=== PATIENT | female | born 1995 | race American Indian/Alaskan Native ===

== ENCOUNTER 2016-08-20 00:22 | Emergency (ER) | payer SELFPAY ==
[2016-08-20 00:33] VITALS: BP 139/92
== END 2016-08-20 00:30 | disposition left against medical advice (07) ==
LOC: ED 00:22
DX: J02.9 Acute pharyngitis, unspecified (principal); R05 Cough; Z53.21 Procedure and treatment not carried out due to patient leaving prior to being seen by health care provider

== ENCOUNTER 2017-03-22 22:42 | Emergency (ER) | payer SELFPAY ==
[2017-03-23 00:57] VITALS: BP 111/53
--- NOTE | 2017-03-23 05:42 | Emergency Department Report ---
ED ENT HPI - General Chief complaint: Sore Throat Stated complaint: SORE THROAT Time Seen by Provider: 03/23/17 05:28 Source: patient Mode of arrival: Ambulatory Limitations: No Limitations - History of Present Illness Initial comments: A 21-year-old female presents to ER with complaints of sore throat and cough productive of scant sputum 1 week. Patient denies nausea vomiting or diarrhea , no fever. No known sick contacts. No rashes. Patient has nasal congestion with rhinorrhea MD complaint: sore throat -: Gradual, week(s) (1) Location: throat (sore throat) Severity: moderate Severity scale (0 -10): 5 Quality: aching Consistency: constant Improves with: none Worsens with: swallowing, eating Associated Symptoms: cough, pain with swallowing, sore throat, rhinorrhea. denies: fever, gum swelling, toothache, tinnitus, hearing loss, discharge from ear - Related Data Previous Rx's Medication Instructions Recorded Last Taken Type Amoxicillin/K Clav Tab [Augmentin 1 tab PO Q12HR #20 tab 03/23/17 Unknown Rx 875 mg] Ibuprofen [Motrin 400 MG tab] 400 mg PO Q6HR PRN #30 tablet 03/23/17 Unknown Rx guaiFENesin [Robitussin] 200 mg PO Q8HR #300 ml 03/23/17 Unknown Rx Allergies Allergy/AdvReac Type Severity Reaction Status Date / Time No Known Allergies Allergy Verified 08/20/16 00:29 ED Dental HPI - General Chief complaint: Sore Throat Stated complaint: SORE THROAT Time Seen by Provider: 03/23/17 05:28 Source: patient Mode of arrival: Ambulatory Limitations: No Limitations - Related Data Previous Rx's Medication Instructions Recorded Last Taken Type Amoxicillin/K Clav Tab [Augmentin 1 tab PO Q12HR #20 tab 03/23/17 Unknown Rx 875 mg] Ibuprofen [Motrin 400 MG tab] 400 mg PO Q6HR PRN #30 tablet 03/23/17 Unknown Rx guaiFENesin [Robitussin] 200 mg PO Q8HR #300 ml 03/23/17 Unknown Rx Allergies Allergy/AdvReac Type Severity Reaction Status Date / Time No Known Allergies Allergy Verified 08/20/16 00:29 ED Review of Systems ROS: Stated complaint: SORE THROAT Other details as noted in HPI Comment: All other systems reviewed and negative Constitutional: no symptoms reported, malaise, weakness. denies: chills, diaphoresis, fever Eyes: denies: eye pain, eye discharge, vision change ENT: throat pain. denies: dental pain, hearing loss, epistaxis Respiratory: cough (productive of scant yellowish sputum), shortness of breath. denies: SOB with exertion, SOB at rest Cardiovascular: denies: chest pain, palpitations, dyspnea on exertion, orthopnea , edema, syncope, paroxysmal nocturnal dyspnea Endocrine: no symptoms reported Gastrointestinal: denies: nausea, vomiting, diarrhea, constipation, hematemesis , melena Genitourinary: denies: urgency, dysuria, frequency, hematuria, discharge Skin: denies: lesions, change in color, change in hair/nails, pruritus Neurological: denies: headache, weakness, numbness, paresthesias ED Past Medical Hx - Past Medical History Previous Medical History?: No - Surgical History Past Surgical History?: No - Social History Smoking Status: Never Smoker - Medications Home Medications: Home Medications Medication Instructions Recorded Confirmed Last Taken Type Amoxicillin/K Clav Tab [Augmentin 1 tab PO Q12HR #20 tab 03/23/17 Unknown Rx 875 mg] Ibuprofen [Motrin 400 MG tab] 400 mg PO Q6HR PRN #30 tablet 03/23/17 Unknown Rx guaiFENesin [Robitussin] 200 mg PO Q8HR #300 ml 03/23/17 Unknown Rx ED Physical Exam - General Limitations: No Limitations General appearance: alert, in no apparent distress - Head Head exam: Present: atraumatic, normocephalic, normal inspection - Eye Eye exam: Present: normal appearance, PERRL, EOMI. Absent: scleral icterus, conjunctival injection, nystagmus - ENT ENT exam: Present: normal exam, mucous membranes moist, TM's normal bilaterally , normal external ear exam, other (erythemic pharynx) - Neck Neck exam: Present: normal inspection, full ROM, lymphadenopathy. Absent: tenderness, meningismus - Respiratory Respiratory exam: Present: normal lung sounds bilaterally. Absent: respiratory distress, wheezes, rales, rhonchi, stridor, chest wall tenderness, accessory muscle use, decreased breath sounds - Cardiovascular Cardiovascular Exam: Present: regular rate, normal rhythm, normal heart sounds. Absent: bradycardia, tachycardia, systolic murmur, diastolic murmur - GI/Abdominal GI/Abdominal exam: Present: soft, normal bowel sounds. Absent: distended, tenderness, guarding, rebound, hyperactive bowel sounds, hypoactive bowel sounds , organomegaly, mass - Back Exam Back exam: Present: normal inspection, full ROM. Absent: tenderness, CVA tenderness (L), muscle spasm - Neurological Exam Neurological exam: Present: alert, oriented X3, CN II-XII intact, motor sensory deficit ED Course Vital Signs 03/23/17 03/23/17 00:56 01:04 Temperature 98.1 F 98.1 F Pulse Rate 65 65 Respiratory 16 16 Rate Blood Pressure 111/53 Blood Pressure 111/53 [Right] O2 Sat by Pulse 100 100 Oximetry Critical Care Time: No Critical care attestation.: If time is entered above; I have spent that time in minutes in the direct care of this critically ill patient, excluding procedure time. ED Disposition Clinical Impression: Upper respiratory tract infection, Acute pharyngitis Disposition: TO HOME OR SELFCARE Is pt being admited?: No Does the pt Need Aspirin: No Condition: Stable Instructions: Pharyngitis (ED), Upper Respiratory Infection (ED) Additional Instructions: Gargle with warm saltwater as needed. Follow up with her primary care physician in 2-3 days. Return back to the ER if your problem gets worse Prescriptions: Amoxicillin/K Clav Tab [Augmentin 875 mg] 1 tab PO Q12HR #20 tab guaiFENesin [Robitussin] 200 mg PO Q8HR #300 ml Ibuprofen [Motrin 400 MG tab] 400 mg PO Q6HR PRN #30 tablet PRN Reason: Pain Referrals: PRIMARY CARE, [Primary Care Provider] - 3-5 Days Time of Disposition: 05:51
== END 2017-03-23 06:00 | disposition home or self-care (01) ==
LOC: ED 22:42
DX: J06.9 Acute upper respiratory infection, unspecified (principal); J02.9 Acute pharyngitis, unspecified
CPT/HCPCS: 87116; 87430; 99282

== ENCOUNTER 2019-05-25 09:11 | Emergency (ER) | payer MEDICAID ==
[2019-05-25] MEDS ORDERED: IBUPROFEN 800 MG TAB PO ONE (11:09)
--- NOTE | 2019-05-25 11:10 | Emergency Department Report ---
Minor Respiratory - HPI Duration: 5 Days Pain Location: Chest Severity: mild Minor Respiratory: Yes Able to Tolerate Fluids, Yes Fever, No Rhinorrhea, No Sore Throat, No Ear Pain, No Cough, No Sick Contacts, No Hemoptysis, No Chest Pain, No Shortness of Breath Other History: 23 yo comes to ER with 5 day hx of fever, body aches, and cough. She states she feels weak. Denies pMH. No abd pain, no dysuria, no vag dc, no ba ck pain. No n/v/d. Provider took temp 102.6 orally. HR 100 and sat on room air 100%. <KEV MILTON - Last Filed: 05/25/19 17:46> <HALEY KEYES - Last Filed: 05/26/19 00:53> - HPI Chief Complaint: Upper Respiratory Infection Stated Complaint: FLU LIKE SYM Time Seen by Provider: 05/25/19 11:08 ED Review of Systems ROS: Stated complaint: FLU LIKE SYM Other details as noted in HPI Comment: All other systems reviewed and negative <KEV MILTON - Last Filed: 05/25/19 17:46> ROS: Stated complaint: FLU LIKE SYM Other details as noted in HPI <HALEY KEYES - Last Filed: 05/26/19 00:53> ED Past Medical Hx - Past Medical History Previous Medical History?: No - Surgical History Past Surgical History?: No - Family History Family history: no significant - Social History Smoking Status: Never Smoker Substance Use Type: None <KEV MILTON - Last Filed: 05/25/19 17:46> <HALEY KEYES - Last Filed: 05/26/19 00:53> - Medications Home Medications: Home Medications Medication Instructions Recorded Confirmed Last Taken Type Azithromycin [Zithromax Z-VIANEY] 250 mg PO DAILY #6 tablet 05/25/19 Unknown Rx Benzonatate [Tessalon Perles] 100 mg PO Q12H PRN #20 capsule 05/25/19 Unknown Rx Cetirizine HCl [ZyrTEC] 10 mg PO DAILY #30 capsule 05/25/19 Unknown Rx Fluticasone [Flonase] 1 spray NS QDAY #1 bottle 05/25/19 Unknown Rx Minor Respiratory Exam - Exam General: Vital signs noted. No distress. Alert and acting appropriately. HEENT: Yes Moist Mucous Membranes, No Pharyngeal Erythema, No Pharyngeal Exudates, No Rhinorrhea, No Conjuctival Injection, No Frontal Tenderness, No Maxillary Tenderness Ear: Neither TM Bulge, Neither TM Erythema, Neither EAC Pain, Neither EAC Discharge Neck: Yes Supple, No Adenopathy Lungs: Yes Good Air Exchange, No Wheezes, No Ronchi, No Stridor, No Cough, No Labored Respirations, No Retractions, No Use of Accessory Muscles, No Other Abnormal Lung Sounds Heart: Yes Regular, No Murmur Abdomen: Yes Normal Bowel Sounds, No Tenderness, No Peritoneal Signs Skin: No Rash, No Edema Neurologic: Alert and oriented, no deficits. Musculoskeletal: Unremarkable. <KEV MILTON - Last Filed: 05/25/19 17:46> - Exam General: Vital signs noted. No distress. Alert and acting appropriately. Neurologic: Alert and oriented, no deficits. Musculoskeletal: Unremarkable. <HALEY KEYES - Last Filed: 05/26/19 00:53> ED Course Vital Signs 05/25/19 09:58 Temperature 98.7 F Pulse Rate 113 H Respiratory 18 Rate Blood Pressure 106/63 O2 Sat by Pulse 96 Oximetry <SAFIAKEV HARTMAN Marilyn - Last Filed: 05/25/19 17:46> Vital Signs 05/25/19 09:58 Temperature 98.7 F Pulse Rate 113 H Respiratory 18 Rate Blood Pressure 106/63 O2 Sat by Pulse 96 Oximetry <HALEY KEYES - Last Filed: 05/26/19 00:53> ED Medical Decision Making - Lab Data Result diagrams: 05/25/19 16:56 - Radiology Data Radiology results: report reviewed, image reviewed - Medical Decision Making taking po medicated for fever alert/oriented ambulatory s1s2 no abd pain abd snt no back pain no cva tenderness no cough noted in ER throat wnl ears wnl rapid flu neg xray noted Lab Results 05/25/19 Range/Units Unknown Influenza A (Rapid) Negative (Negative) Influenza B (Rapid) Negative (Negative) Vital Signs 05/25/19 09:58 Temperature 98.7 F Pulse Rate 113 H Respiratory 18 Rate Blood Pressure 106/63 O2 Sat by Pulse [address] and labs pending Labs 05/25/19 05/25/19 05/25/19 15:36 16:56 Unknown WBC 1.6 L* RBC 3.77 Hgb 12.1 Hct 36.2 MCV 96 MCH 32 MCHC 34 RDW 12.8 L Plt Count 145 HCG, Qual Negative Influenza A (Rapid) Negative Influenza B (Rapid) Negative 1745 cr still pending PLAN 1. CT TO EVALUATE ABN FINDING ON CHEST XRAY 2. DISPO ACCORDINGLY Vital Signs 05/25/19 09:58 Temperature 98.7 F Pulse Rate 113 H Respiratory 18 Rate Blood Pressure 106/63 O2 Sat by Pulse 96 Oximetry - Differential Diagnosis flu like illness/viral v bacterial <KEV MILTON - Last Filed: 05/25/19 17:46> - Lab Data Result diagrams: 05/25/19 16:56 05/25/19 16:56 - Radiology Data Patient: RO TESFAYE MR#: [id number] : 1995 Acct:[id number] Age/Sex: 23 / F ADM Date: 05/25/19 Loc: ED Attending Dr: Ordering Physician: KEV MILTON Date of Service: 05/25/19 Procedure(s): CT chest w con Accession Number(s): [id number] cc: KVE MILTON CT CHEST WITH CONTRAST INDICATION: cough weak, mass on chest x-ray today CONTRAST: 100 cc Omnipaque 300 IV COMPARISON: Chest x-ray today All CT scans at this location are performed using CT dose reduction for ALARA by means of automated exposure control. FINDINGS: No significant bony abnormalities are seen. The right lobe of the thyroid shows a complex lesion in the midportion with probable area of enhancement. This measures 16 mm in diameter. Small nodule measuring 5 mm is seen in the left isthmus area and a tiny hypodensity seen in the midportion of the left lobe of the thyroid. Significant axillary or chest wall abnormalities are seen. Visualized portions of the upper abdomen show no abnormalities. No mediastinal or left hilar masses are seen. There appears to be mild right hilar brittany prominence. No pleural effusions are seen. No obvious endobronchial lesions are noted. No pneumothorax or pneumomediastinum are seen. Aorta shows no abnormalities. An area of the mass lesion on CT in the upper medial posterior right hemithorax, an extrapleural diffusely hyperdense mass is seen, possibly with some peripheral calcification in the upper portion. This mass measures 5.2 cm in width and has a maximal thickness of 3 cm. Appearance is homogenous and internal density measures 159 Hounsfield units. The mass protrudes into the right hemithorax from the periphery but the broadest extent appears to be extra pleural I believe this is an extrapleural mass rather than a pleural-based mass. I do not see obvious involvement of adjacent ribs or spine. No widening of the neural foramina in this region is seen. In the extrapleural tissues just below this level there is a suggestion of contiguous mild thickening and possible enhancement surrounding an area of central fatty density which may relate to the larger mass. No other obvious pleural or extrapleural lesions are seen. In the lateral aspect of the right upper lobe on image 43 of series 2, a 2 mm soft tissue nodule is seen. Just inferior to this there is mild nodularity with 2-3 small nodule seen measuring up to 3 mm. More inferiorly and posteriorly in the right upper lobe on image 54, a small groundglass type nodule is noted measuring 4 mm. A solid nodule in the right upper lobe lower portion anterolaterally on image 73 measuring 4 mm and peripherally another small semisolid nodule is seen measuring 3 mm. A small subpleural nodule is noted posteriorly in the lower right hemithorax measuring less than 3 mm. Mild peripheral nodularity in the right lower lobe is seen on image 58 with 2 adjacent nodules measuring 3 mm which appears semisolid. Plaque-like nodularity is seen in the major fissure in the left midlung measuring 6 mm in length but less than 3 mm in thickness. No other nodules are seen on the left. IMPRESSION: 1. The density seen in the right upper posterior hemithorax on chest x-ray is shown to be a homogenous and probably uniformly enhancing extrapleural mass, possibly with mild calcifications. This does not show an effect on adjacent bony structures. Possibilities in this paravertebral location would include neurogenic type tumor such as neurofibromatosis or a schwannoma. Castleman disease is also a rare consideration. Other types of neoplasia cannot be excluded though many would not be expected in such a young patient. Lymphoma is possible though the uniform (probable) enhancement is unlikely in that process. 2. Mild nodularity is seen in the right lung, also unusual in this young patient without obvious calcified granulomata. Metastatic process cannot be excluded but these may be benign nodules. Follow-up of this nodularity would be needed. Signer Name: Rene Jessica MD Signed: 05/25/2019 7:06 PM Workstation Name: [id number] Transcribed By: GJ Dictated By: Rene Jessica MD Electronically Authenticated By: Rene Jessica MD Signed Date/Time: 05/25/191905 DD/ 41 TD/TT: <HALEY KEYES Josefa - Last Filed: 05/26/19 00:53> Critical care attestation.: If time is entered above; I have spent that time in minutes in the direct care of this critically ill patient, excluding procedure time. <KEV MILTON Marilyn - Last Filed: 05/25/19 17:46> Critical care attestation.: If time is entered above; I have spent that time in minutes in the direct care of this critically ill patient, excluding procedure time. <HALEY KEYES Josefa - Last Filed: 05/26/19 00:53> ED Disposition Does the pt Need Aspirin: No <KEV MILTON A - Last Filed: 05/25/19 17:46> <WALIHALEY Rivero - Last Filed: 05/26/19 00:53> Clinical Impression: Pleural nodule Disposition: DC- TO HOME OR SELFCARE Condition: Stable Instructions: Pulmonary Nodules (ED) Additional Instructions: diet as tolerated stay well hydrated motrin or tylenol over the counter for fever or pain rest med as ordered today follow up with PCP on Wednesday to be sure you are feeling better referral below Prescriptions: Fluticasone [Flonase] 1 spray NS QDAY #1 bottle Benzonatate [Tessalon Perles] 100 mg PO Q12H PRN #20 capsule PRN Reason: Cough Azithromycin [Zithromax Z-VIANEY] 250 mg PO DAILY #6 tablet Cetirizine HCl [ZyrTEC] 10 mg PO DAILY #30 capsule Referrals: BENNIE SNOW MD [Staff Physician] - 3-5 Days MARY BENTLEY MD [Staff Physician] - 3-5 Days Forms: Accompanied Note, Work/School Release Form(ED)
--- NOTE | 2019-05-25 12:07 | XRay Report ---
CHEST 2 VIEWS INDICATION: fever cough. COMPARISON: None FINDINGS: Support devices: None. Heart: Within normal limits. Lungs/pleura: No acute air space or interstitial disease. No pneumothorax. Additional findings: A 3.6 x 3.5 cm well-circumscribed masslike lesion is identified in the superior, posterior mediastinum on the right side at the level of the aortic arch. IMPRESSION: No acute cardiopulmonary process. Superior posterior mediastinal mass as described. 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 Consider further evaluation with CT chest with contrast. Signer Name: Jason Rosa Jr, MD Signed: 05/25/2019 12:02 PM Workstation Name: [id number]
[2019-05-25] MEDS ORDERED: SODIUM CHLORIDE 0.9% 1000 ML 1,000 ML IV ONE (12:14)
[2019-05-25 17:24] LABS: Hematocrit 36.2 % (30.3-42.9); Hemoglobin 12.1 gm/dl (10.1-14.3); Mean Corpuscular HGB Conc 34 % (30-34); Mean Corpuscular Volume 96 fl (79-97); Platelet Count 145 K/mm3 (140-440); Red Blood Count 3.77 M/mm3 (3.65-5.03); Red Cell Distribution Width 12.8 % (13.2-15.2)
[2019-05-25] MEDS ORDERED: ACETAMINOPHEN 500 MG TAB PO ONE (17:46)
[2019-05-25 17:47] LABS: BUN/Creatinine Ratio 10; Blood Urea Nitrogen 6 mg/dL (7-17); Hemolysis Index 5
--- NOTE | 2019-05-25 19:11 | Cat Scan Report ---
CT CHEST WITH CONTRAST INDICATION: cough weak, mass on chest x-ray today CONTRAST: 100 cc Omnipaque 300 IV COMPARISON: Chest x-ray today All CT scans at this location are performed using CT dose reduction for ALARA by means of automated e xposure control. FINDINGS: No significant bony abnormalities are seen. The right lobe of the thyroid shows a complex l esion in the midportion with probable area of enhancement. This measures 16 mm in diameter. Small nod ule measuring 5 mm is seen in the left isthmus area and a tiny hypodensity seen in the midportion of the left lobe of the thyroid. Significant axillary or chest wall abnormalities are seen. Visualized portions of the upper abdomen s how no abnormalities. No mediastinal or left hilar masses are seen. There appears to be mild right hi lar brittany prominence. No pleural effusions are seen. No obvious endobronchial lesions are noted. No p neumothorax or pneumomediastinum are seen. Aorta shows no abnormalities. An area of the mass lesion on CT in the upper medial posterior right hemithorax, an extrapleural diff usely hyperdense mass is seen, possibly with some peripheral calcification in the upper portion. This mass measures 5.2 cm in width and has a maximal thickness of 3 cm. Appearance is homogenous and inte rnal density measures 159 Hounsfield units. The mass protrudes into the right hemithorax from the per iphery but the broadest extent appears to be extra pleural I believe this is an extrapleural mass rat her than a pleural-based mass. I do not see obvious involvement of adjacent ribs or spine. No widenin g of the neural foramina in this region is seen. In the extrapleural tissues just below this level th ere is a suggestion of contiguous mild thickening and possible enhancement surrounding an area of kala tral fatty density which may relate to the larger mass. No other obvious pleural or extrapleural lesi ons are seen. In the lateral aspect of the right upper lobe on image 43 of series 2, a 2 mm soft tissue nodule is s een. Just inferior to this there is mild nodularity with 2-3 small nodule seen measuring up to 3 mm. More inferiorly and posteriorly in the right upper lobe on image 54, a small groundglass type nodule is noted measuring 4 mm. A solid nodule in the right upper lobe lower portion anterolaterally on imag e 73 measuring 4 mm and peripherally another small semisolid nodule is seen measuring 3 mm. A small s ubpleural nodule is noted posteriorly in the lower right hemithorax measuring less than 3 mm. Mild pe ripheral nodularity in the right lower lobe is seen on image 58 with 2 adjacent nodules measuring 3 m m which appears semisolid. Plaque-like nodularity is seen in the major fissure in the left midlung me asuring 6 mm in length but less than 3 mm in thickness. No other nodules are seen on the left. IMPRESSION: 1. The density seen in the right upper posterior hemithorax on chest x-ray is shown to be a homogenou s and probably uniformly enhancing extrapleural mass, possibly with mild calcifications. This does no t show an effect on adjacent bony structures. Possibilities in this paravertebral location would incl ude neurogenic type tumor such as neurofibromatosis or a schwannoma. Castleman disease is also a rare consideration. Other types of neoplasia cannot be excluded though many would not be expected in such a young patient. Lymphoma is possible though the uniform (probable) enhancement is unlikely in that process. 2. Mild nodularity is seen in the right lung, also unusual in this young patient without obvious calc ified granulomata. Metastatic process cannot be excluded but these may be benign nodules. Follow-up o f this nodularity would be needed. Signer Name: Rene Jessica MD Signed: 05/25/2019 7:06 PM Workstation Name: [id number]
[2019-05-25 23:45] VITALS: BP 111/60
== END 2019-05-25 20:15 | disposition home or self-care (01) ==
LOC: ED 09:11
DX: R22.2 Localized swelling, mass and lump, trunk (principal); Z79.899 Other long term (current) drug therapy
CPT/HCPCS: 36415; 71046; 71260; 80048; 84703; 85027; 87400; 99284; J7030; Q9967

== ENCOUNTER 2020-09-11 17:01 | Emergency (ER) | payer MEDICAID | END 2020-09-11 18:00 | disposition left against medical advice (07) | LOC: ED 17:01 | DX: N93.9 Abnormal uterine and vaginal bleeding, unspecified (principal); Z53.21 Procedure and treatment not carried out due to patient leaving prior to being seen by health care provider ==